=== PATIENT | female | born 1970 | race Caucasian/White ===

== ENCOUNTER 2016-12-04 20:21 | Emergency (ER) | payer OTHER ==
[~2016-12-04] VITALS: Ht 162.6 cm; Wt 90.0 kg
[~2016-12-04 20:21] MED LIST: FER325 PO; MEDR10TA2 PO
[2016-12-04 20:28] VITALS: Ht 162.6 cm; Wt 90.0 kg
[2016-12-04] MEDS ORDERED: IBUPROFEN 600 MG TAB PO ONE (21:00)
[2016-12-04 21:41] LABS: ADD SCAN DIFF NO
[2016-12-04 21:44] LABS: BASOPHILS % 0.6 % (0.0-2.0); EOSINOPHILS # 0.2 10^3/ul (0.0-0.5); EOSINOPHILS % 2.5 % (0.0-7.0); HEMATOCRIT 43.4 % (37.0-47.0); HEMOGLOBIN 14.3 g/dl (12.0-16.0); LYMPHOCYTES # 2.3 10^3/ul (0.8-2.9); MEAN CORPUSCULAR HEMOGLOBIN 27.4 pg (29.0-33.0); MEAN CORPUSCULAR HGB CONC 32.9 g/dl (32.0-37.0); MEAN CORPUSCULAR VOLUME 83.3 fl (82.0-101.0); MEAN PLATELET VOLUME 9.8 fl (7.4-10.4); MONOCYTE # 0.5 10^3/ul (0.3-0.9); MONOCYTES % 7.2 % (0.0-11.0); NEUTROPHIL # 3.4 10^3/ul (1.6-7.5); NEUTROPHILS % 52.9 % (39.0-77.0); PLATELET COUNT 359 10^3/UL (140-415); RED BLOOD COUNT 5.21 10^6/ul (4.20-5.40); RED CELL DISTRIBUTION WIDTH 13.2 % (11.5-14.5); WHITE BLOOD COUNT 6.4 10^3/ul (4.8-10.8)
[2016-12-04 22:10] LABS: CREATININE 0.62 mg/dl (0.44-1.00)
--- NOTE | 2016-12-04 22:20 | ERD ---
ER Documentation Chief Complaint Date/Time DATE: 12/04/16 TIME: 22:15 Chief Complaint heavy periods of menstruation x 2 months HPI This is a 46-year-old female presents emergency department for menorrhagia. Patient states she has had constant vaginal bleeding for the past 2 months. Patient states this has been an ongoing problem for the past year. First day of last menstrual period 10/13/2016. No passage of clots or tissue. Denies nausea or vomiting. No diarrhea or constipation. Previous pelvic ultrasound was done 03/2016 which showed uterine fibroid. Patient was given Provera which she states improved symptoms. Denies any chest pain, shortness of breath or dizziness. No dysuria or hematuria. Patient has been taking iron tablets for the past year. ROS All systems reviewed and are negative except as per history of present illness. Medications Home Meds Active Scripts Metformin* (Glucophage*) 500 Mg Tab, 500 MG PO BID, #60 TAB Prov:KARIME ERICKSON NP 12/04/16 Norethindrone-Ethinyl Estradiol (Ortho-Novum ()) 0.035-1 Mg Tablet, 1 TAB PO DAILY, #28 TAB Prov:KARIME ERICKSON NP 12/04/16 Medroxyprogesterone Acetate* (Provera*) 10 Mg Tablet, 10 MG PO DAILY for 5 Days , TAB Prov:ETTA BARTON MD 04/11/16 Ferrous Sulfate* (Ferrous Sulfate*) 325 Mg Tabec, 325 MG PO BID, #60 TAB Prov:ETTA BARTON MD 04/11/16 Allergies Allergies: Coded Allergies: No Known Allergy (Unverified , 04/11/16) PMhx/Soc History of Surgery: Yes (Appendectomy ) Anesthesia Reaction: No Hx Neurological Disorder: No Hx Respiratory Disorders: No Hx Cardiac Disorders: Yes (HTN) Hx Psychiatric Problems: No Hx Miscellaneous Medical Probl: No Hx Alcohol Use: No Hx Substance Use: No Hx Tobacco Use: No Smoking Status: Never smoker Physical Exam Vitals Vital Signs Date Time Temp Pulse Resp B/P Pulse Ox O2 Delivery O2 Flow Rate FiO2 12/04/16 20:28 98.4 94 20 132/90 99 Physical Exam Const: Alert, no acute distress, oriented to person place and time. Head: Atraumatic Eyes: Normal Conjunctiva ENT: Normal External Ears, Nose and Mouth. Neck: Full range of motion..~ No meningismus. Resp: Clear to auscultation bilaterally. No wheezing, rhonchi or crackles. Cardio: Regular rate and rhythm, no murmurs Abd: Soft, non tender, non distended. Normal bowel sounds Skin: No petechiae or rashes Back: No midline or flank tenderness Ext: No cyanosis, or edema Neur: Awake and alert Psych: Normal Mood and Affect Result Diagram: 12/04/16212912/04/162129 Results 24 hrs Laboratory Tests Test 12/04/16 21:30 White Blood Count 6.410^3/ul Red Blood Count 5.2110^6/ul Hemoglobin 14.3g/dl Hematocrit 43.4% Mean Corpuscular Volume 83.3fl Mean Corpuscular Hemoglobin 27.4pg Mean Corpuscular Hemoglobin Concent 32.9g/dl Red Cell Distribution Width 13.2% Platelet Count 59341^3/UL Mean Platelet Volume 9.8fl Neutrophils % 52.9% Lymphocytes % 36.0% Monocytes % 7.2% Eosinophils % 2.5% Basophils % 0.6% Nucleated Red Blood Cells % 0.0/100WBC Neutrophils # 3.410^3/ul Lymphocytes # 2.310^3/ul Monocytes # 0.510^3/ul Eosinophils # 0.210^3/ul Basophils # 0.010^3/ul Nucleated Red Blood Cells # 0.010^3/ul Sodium Level 133mmol/L Potassium Level 4.0mmol/L Chloride Level 96mmol/L Carbon Dioxide Level 25mmol/L Anion Gap 16 Blood Urea Nitrogen 12mg/dl Creatinine 0.62mg/dl Glucose Level 363mg/dl Calcium Level 9.0mg/dl Current Medications Medications (Trade) Dose Ordered Sig/Mia Route PRN Reason Start Time Stop Time Status Last Admin Dose Admin Ibuprofen (Motrin) 600 mg ONCE ONCE PO 12/04/16 21:00 12/04/16 21:01 DC 12/04/16 21:34 Procedures/MDM Patient: CARMELINA WALDEN : 1970 Age: 46 Sex: F MR #: [id number] DOS: 12/04/162049 Ordering MD: KARIME ERICKSON NP Location: [facility] Room/Bed: PROCEDURE: US Pelvis. CLINICAL INDICATION: Vaginal bleeding TECHNIQUE: Multiple sonographic images of the pelvis were obtained utilizing a transabdominal and endovaginal technique. The images were reviewed on a PACS workstation. COMPARISON: 04/11/2016 FINDINGS: Uterus: Myometrial masses consistent with leiomyomata are again noted, the largest is in the fundus and currently measuring 4.5 cm in greatest dimension, not significantly changed. Overall uterine size is estimated at 9.8 x 7.8 x 5.7 cm. Cervix: No abnormalities of significance are seen. Endometrium: Heterogeneous in echotexture and slightly increased in thickness; 11.5 mm. Normal blood flow on Doppler interrogation is present. Right ovary / adnexa: Normal in size estimated at 3.2 x 3 x 1.7 cm. No evidence for masses, normal blood flow on Doppler interrogation. Small simple cyst of 2 x 1.7 x 1.1 cm is noted. Left ovary/adnexa: The ovary is not visualized. Cul-de-sac: No evidence of free fluid. RPTAT:HJJR IMPRESSION: 1. Endometrial thickness slightly increased at 11.5 mm similar to the prior study of 04/11/2016 at which time it measured 13.4 mm. Endometrial hyperplasia , submucosal leiomyoma and endometrial carcinoma are differential diagnostic considerations for the follow-up evaluation is recommended. 2. Leiomyomatous uterus, the largest intramural fibroid in the fundus estimated 4.5 cm and not significantly change from the prior study. 3. Incidental simple cyst of the right ovary, the left ovary is not visualized. MDM: 46-year-old female presents emergency department for menorrhagia 2 months. Patient states this has been an ongoing problem for the past 1 year. No nausea or vomiting on the ED. Patient is afebrile. Denies dizziness or weakness. Patient has been previously diagnosed with uterine fibroid in 2015. Patient states she has been on Provera before which improved her symptoms. Labs are unremarkable. Hemoglobin is 14.3. Glucose 363. No previous diagnosis of diabetes. Patient states she takes an iron tablet daily. Patient remains alert, calm and comfortable throughout ED visit. Patient has been taking Provera 10 mg BID by mouth however continues to have vaginal bleeding. Pelvic ultrasound reviewed by radiologist as endometrial thickness slightly increased at 11.5 mm similar to the prior study of 04/11/2016 at which time it measured 13.4 mm. Endometrial hyperplasia, submucosal leiomyoma and endometrial carcinoma are differential diagnostic considerations for the follow- up evaluation is recommended. Consulted Dr. Jimenez regarding this patient and we agree that patient is appropriate for outpatient management and referral to [facility] for continued management and possible biopsy. No signs or symptoms of anemia. Diagnosis is dysfunctional uterine bleeding. Patient is appropriate for outpatient management will be given prescription for Ortho-Novum and metformin. Instructed patient to follow-up with [facility] in the next 2-3 days for reassessment and additional management. Return to ED for any high fever, chest pain, difficulty breathing, shortness breath, wheezing, vomiting, diarrhea, abdominal pain or any new or worsening symptoms. Patient verbalizes understanding. All questions answered at discharge. [place] translation use during this encounter. Departure Diagnosis: Primary Impression: Dysfunctional uterine bleeding Condition: KARIME Salas NP December 04, 2016 22:20
--- NOTE | 2016-12-04 22:22 | RADRPT ---
PROCEDURE: US Pelvis. CLINICAL INDICATION: Vaginal bleeding TECHNIQUE: Multiple sonographic images of the pelvis were obtained utilizing a transabdominal and endovaginal technique. The images were reviewed on a PACS workstation. COMPARISON: 04/11/2016 FINDINGS: Uterus: Myometrial masses consistent with leiomyomata are again noted, the largest is in the fundus and currently measuring 4.5 cm in greatest dimension, not significantly changed. Overall uterine si ze is estimated at 9.8 x 7.8 x 5.7 cm. Cervix: No abnormalities of significance are seen. Endometrium: Heterogeneous in echotexture and slightly increased in thickness; 11.5 mm. Normal bloo d flow on Doppler interrogation is present. Right ovary / adnexa: Normal in size estimated at 3.2 x 3 x 1.7 cm. No evidence for masses, normal blood flow on Doppler interrogation. Small simple cyst of 2 x 1.7 x 1.1 cm is noted. Left ovary/adnexa: The ovary is not visualized. Cul-de-sac: No evidence of free fluid. RPTAT:HJJR IMPRESSION: 1. Endometrial thickness slightly increased at 11.5 mm similar to the prior study of 04/11/2016 at which time it measured 13.4 mm. Endometrial hyperplasia, submucosal leiomyoma and endometrial carci noma are differential diagnostic considerations for the follow-up evaluation is recommended. 2. Leiomyomatous uterus, the largest intramural fibroid in the fundus estimated 4.5 cm and not sign ificantly change from the prior study. 3. Incidental simple cyst of the right ovary, the left ovary is not visualized. Physician Juan Date Time Electronically viewed and signed by Physician Juan on 12/04/2016 22:22 /
[2016-12-04] MEDS ORDERED: METF500T4 PO (22:48)
[2016-12-04] MEDS ORDERED: ORTNOV PO (22:48)
[2016-12-04 23:12] VITALS: BP 140/86; PULSE 79; RESP 18; TEMP 98.6
== END 2016-12-04 23:12 | disposition home or self-care (01) ==
LOC: FTE 20:21
DX: N93.8 Other specified abnormal uterine and vaginal bleeding (principal); I10 Essential (primary) hypertension
CPT/HCPCS: 76830; 76856; 80048; 85025; Z7502; Z7610